=== PATIENT | female | born 1970 | race Caucasian/White ===

== ENCOUNTER 2021-04-01 16:44 | Emergency (ER) | payer BC ==
[2021-04-01 19:59] LABS: BUN/CREATININE RATIO 37 (0-10)
[2021-04-01 21:24] LABS: HEMOGLOBIN 14.7 gm/dl (12.3-15.3); RED BLOOD COUNT 4.9 M/UL (4.00-5.10); WHITE BLOOD COUNT 13.2 K/UL (4.5-11.0)
[2021-04-02 01:56] LABS: HEMOGLOBIN 14.3 gm/dl (12.3-15.3); RED BLOOD COUNT 4.82 M/UL (4.00-5.10); WHITE BLOOD COUNT 10.7 K/UL (4.5-11.0)
[2021-04-02] MEDS ORDERED: ZOFRAN ODT 4 MG4 MG SL (03:28)
[2021-04-02] MEDS ORDERED: DIFLUCAN150 MG PO (03:28)
[2021-04-02] MEDS ORDERED: CIPRO500 MG PO (03:28)
[2021-04-02] MEDS ORDERED: HYDROCODON-ACE1 EAC4 PO (03:28)
[2021-04-02] MEDS ORDERED: METRONIDAZOLE500 MG PO (03:28)
== END 2021-04-02 03:50 | disposition home or self-care (01) ==
LOC: ER1 16:44
PROVIDERS: Physician Assistant; Student in an Organized Health Care Education/Training Program
DX: K52.9 Noninfective gastroenteritis and colitis, unspecified (principal); E11.9 Type 2 diabetes mellitus without complications; E78.5 Hyperlipidemia, unspecified; I10 Essential (primary) hypertension; Z86.718 Personal history of other venous thrombosis and embolism; Z20.822 Contact with and (suspected) exposure to COVID-19
CPT/HCPCS: 71045; 80053; 81001; 82550; 82553; 83874; 84484; 85025; 85379; 87086; 96374; 96375; 99284; J2270; J2405; Q9967; U0002